=== PATIENT | male | born 1985 | race Caucasian/White ===

== ENCOUNTER 2024-09-27 10:59 | Outpatient (REF) | payer SELFPAY ==
[2024-09-27 13:09] LABS: Estimated Average Glucose 105 mg/dL; Hemoglobin A1C 148.9179 umol/L; Hemoglobin A1c % 5.3 % (<6.0); Total Hemoglobin (HGBA1C) 4302.0543 umol/L
[2024-09-27 13:19] LABS: Alanine Aminotransferase 26 U/L (0-40); Albumin Level 3.9 g/dL (3.5-5.0); Alkaline Phosphatase 73 U/L (39-117); Anion Gap 8 (12-20); Aspartate Amino Transferase 15 U/L (5-37); Bilirubin Total 1.1 mg/dL (0.0-1.0); Blood Urea Nitrogen 12 mg/dL (9-16); Calcium 8.5 mg/dL (8.4-10.2); Carbon Dioxide 28 mmol/L (22-29); Chloride 105 mmol/L (96-108); Estimated Glomerular Filt Rate > 60; Glucose Random 94 mg/dL (60-115); Potassium 3.9 mmol/L (3.3-5.1); Sodium 137 mmol/L (135-145)
[2024-09-27 14:03] LABS: Erythrocyte Sedimentation Rate 1 MM/HR (0-15)
== END 2024-09-27 11:00 | disposition home or self-care (01) ==
LOC: HO.HHCL 10:59
PROVIDERS: General Practice; Visit Provider Optometrist
DX: Z13.1 Encounter for screening for diabetes mellitus (principal); H65.93 Unspecified nonsuppurative otitis media, bilateral; H49.22 Sixth [abducent] nerve palsy, left eye
CPT/HCPCS: 36415; 80053; 83036; 85652

== ENCOUNTER 2024-12-06 08:53 | Outpatient (REF) | payer MEDICAID, SELFPAY ==
--- OUTSIDE RECORDS SUMMARY | 2024-12-06 09:17 | XMS_ITS | Data Portability ---
Author Organization ARAM villagomez [id number] Address [address] [place] [address] Assessment No assessment recorded. Plan of Treatment Reminders Order Date Submit Date Provider Last Modified By Organization Details Last Modified Time Details Appointments None record ed. Lab None record ed. Referral None record ed. Procedures None record ed. Surgeries None record ed. Imaging None record ed. Medication Orders None record ed. Patient TargetsNo targets recorded. Patient InstructionsNo instructions recorded. Reason for Referral None Reported. Medical Equipment None Reported. Vitals None Recorded Social History None recorded. Functional Status None recorded. Mental Status None recorded. Family History Nothing Reported. Medical History No medical history recorded. Past Encounters Encounter ID Performer Location Encounter Start Date Encounter Closed Date Diagnosis/Indication Diagnosis SNOMED-CT Code Diagnosis ICD10 Code Diagnosis Note [id number] [address] [place] [phone] 0 03/29/2022 08:04:23 03/29/2022 10:45:06 [id number] [address] [place] [address] [phone] 0 05/29/2021 14:44:43 05/29/2021 20:00:05 [id number] [address] [place] [phone] 0 05/29/2021 15:01:44 05/29/2021 20:00:01 [id number] Milton Polk MD [address] [place] [address] 05/18/2023 16:43:35 05/18/2023 17:53:02 Physical examination 2859282 Z04.9 Hotel Front Desk Agent lic ense medical examination [id number] Z02.4 Health Concerns Section Related Observation LastModified by Organization Detai ls LastModified Time None Recorded Concern Status LastModified by Organization Details LastModified Time None Recorded Advance Directives Directive None Recorded Payers Encounter Date Sequence Insurance Name Policy Number Policy [place] Covered Member ID [place] Member ID Guarantor Name 05/18/2023 OC-PAY AT TIME OF SERVICE 2022 Deonte Myrick SELF Deonte Myrick
--- OUTSIDE RECORDS SUMMARY | 2024-12-06 09:17 | XMS_ITS | Encounter Summary ---
Author Organization [employer] Address [address] [place] [address] [address] [place] [address] Care Team Providers Care Self Defense Instructor Name Role Phone Name, Mika SMITH Primary Care Provider Reason for Visit * Reason Comments initial visit Encounter Details Date Type Department Care Team ([facility] st Contact Info) Description 11/29/2024 10:45 AM EST Office Visit [facility] [address] [place] [address] [phone] Name, MD Mika [address] [place] [address] Vertigo (Primary Dx); History of stroke; Tiredness; Vaccine refused by patient Social History Tobacco Use Types Packs/Day Years Used Date Smoking Tobacco: Never Passive Smoke Exposure: Never Smokeless Tobacco: Never Alcohol Use Standard Drinks/Week Comments Never 0 (1 standard drink = 0.6 oz pur e alcohol) Housing Stability Answer Date Recorded What is your housing situation today? I have garcíamariah wolfe 11/22/[address] you li ve. Do you have problems with any of the following? None of the above 11/22/2024 Food Insecurity Answer Date Recorded Within the past 12 months, y ou worried that your food would run out before you got money to buy more: Never True 11/22/2024 Within the past 12 months,th e food you bought just didn't last and you didn't have enough money to get more: Never True Transportation Answer Date Recorded In the past 12 months, has l ack of transportation kept you from medical appts, meetings, work or from getting things needed for daily living? No 11/22/2024 Utilities Answer Date Recorded In the past 12 months, has t he electric, gas, oil or water company threatened to shut off services in your home? No 11/22/2024 Internet Access Answer Date Recorded Internet Access Q1 Yes 11/22/2024 Internet Access Q2 Not on file 11/22/2024 Sex and Gender Information Value Date Recorded Sex Assigned at Male 08/23/2022 10:18 AM EDT Legal Sex Male 10:18 AM EDT Gender Identity Male 08/23/2022 10:18 AM EDT Sexual Orientation Don't know 09/26/2024 9: 08 AM EST Sexual Orientation Straight 09/26/2024 9: 08 AM EST documented as of this encounter Last Filed Vital Signs Vital Sign Reading Time Taken Comments Blood Pressure 120/80 11/29/2024 10:37 AM EST Pulse 82 11/29/2024 10:37 AM EST Temperature 35.6 ??C (96 ??F) 11/29/2024 10:37 AM EST Respiratory Rate 18 11/29/2024 10:37 AM EST Oxygen Saturation 96% 11/29/2024 10:37 AM EST Inhaled Oxygen Concentration - - Weight 81.7 kg (180 lb 3.2 oz) 11/29/2024 10:37 AM EST Height 157.5 cm (5' 2 ) 11/29/2024 10:37 AM EST Body Mass Index 32.96 11/29/2024 10:37 AM EST documented in this encounter Progress Notes * Mika Aceves MD - 11/29/2024 10:45 AM EST Subjective Patient ID: Deonte Myrick is a 39 y.o. male who presents for initial visit. Patient comes for the first time to see me. He complains of occasional vertigo and is asymptomatic during his visit. The patient explains to me that he was diagnosed with a stroke at [facility] [id number]. His presentation at the time was vertigo. The patient does not have any residual deficits. Hewas never a smoker, he does not have hypertension or diabetes, he never use illicit drugs. He does not have any focal weakness or sensory deficit. The patient tells me he still gets vertigo but very mild. He does not have any hearing deficits, no tinnitus, no ear pain. 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 He is monogamous and . He refuses any vaccination. Today he complains of occasional tiredness. He does not have any snoring or daytime sleepiness. Review of Systems Constitutional: Negative for chills, fatigue and fever. HENT: Negative for sore throat. Respiratory: Negative for cough, chest tightness and shortness of breath. Cardiovascular: Negative for chest pain, palpitations and leg swelling. Gastrointestinal: Negative for abdominal pain and blood in stool. Neurological: Negative for syncope, speech difficulty, weakness, light- headedness and headaches. Visit Vitals BP 120/80 (BP Location: Right arm, Patient Position: Sitting, BP Cuff Size: Large adult) Pulse 82 Temp 96 ??F (35.6 ??C) (Temporal) Resp 18 Ht 5' 2 (1.575 m) Wt 180 lb 3.2 oz (81.7 kg) SpO2 96% BMI 32.96 kg/m?? Smoking Status Never BSA 1.89 m?? Objective Physical Exam Constitutional: Appearance: Normal appearance. HENT: Right Ear: Tympanic membrane and external ear normal. Left Ear: Tympanic membrane and external ear normal. Cardiovascular: Rate and Rhythm: Normal rate and regular rhythm. Heart sounds: No murmur heard. Pulmonary: Effort: Pulmonary effort is normal. No respiratory distress. Breath sounds: No wheezing, rhonchi or rales. Abdominal: Palpations: Abdomen is soft. Tenderness: There is no abdominal tenderness. Musculoskeletal: Right lower leg: No edema. Left lower leg: No edema. Neurological: General: No focal deficit present. Mental Status: He is alert. Motor: No weakness. Assessment/Plan Diagnoses and all orders for this visit: Vertigo Comments: I recommended as needed meclizine. We discussed sedative side effects of the med. I will start him on aspirin and statin because of remote history of stroke. History of stroke Comments: We will get the records from [facility] back in 2019. Orders: - Lipid Panel, Standard; Future Tiredness Comments: Check CBC and TSH. Orders: - CBC auto differential; Future - TSH W/Reflex to FT4; Future Vaccine refused by patient, he also refused STI testing today Other orders - aspirin 81 MG chewable tablet; Chew 1 tablet (81 mg) Once per day. - atorvastatin (Lipitor) 40 MG tablet; Take 1 tablet (40 mg) by mouth Once per day. - meclizine (Antivert) 25 MG tablet; Take 1 tablet (25 mg) by mouth if needed in the morning, at noon, and at bedtime for dizziness for up to 10 days. documented in this encounter Plan of Treatment Scheduled Orders Name Type Priority Associated Diagnoses Orde r Schedule CBC auto differential Lab Routine Tiredness Expected: 11/29/2024 (Approximate), Expires: 11/29/2025 Lipid Panel, Standard Lab Routine History of stroke Expected: 11/29/2024 (Approximate), Expires: 11/29/2025 TSH W/Reflex to FT4 Lab Routine Tiredness Expected: 11/29/2024 (Approximate), Expires: 11/29/2025 documented as of this encounter Visit Diagnoses Diagnosis Vertigo- Primary Dizziness and giddiness History of stroke Transient ischemic attack (TIA), and cerebral infarction without residual deficits Tiredness Other malaise and fatigue Vaccine refused by patient documented in this encounter Care Teams Self Defense Instructor Relationship Specialty Start Date End Date NameMika MD [address] [place] [address] PCP - General Internal Medicine 11/29/24 documented as of this encounter
--- OUTSIDE RECORDS SUMMARY | 2024-12-06 09:17 | XMS_ITS | Encounter Summary ---
Author Organization [employer] [facility] Address [address] [place] [address] 7t [place] [address] Care Team Providers Care Employment Coordinator Name Role Phone Mika Aceves MD Primary Care Provider [phone] Reason for Referral * Consultation (Routine) - Pending Review Specialty Diagnoses / Procedures Referred By Francoise bowie Referred To Contact Cardiology Diagnoses PFO (patent foramen ovale) History of stroke Mika Aceves MD [address] [place] [address] Phone: tel: fax: Referral ID Status Reason Start Date Expiration Date Visits Requested Visits Authorized [id number] Pending Review Specialty Services Required 11/30/2024 11/30/2025 1 1 * Imaging (Routine) - Pending Review Specialty Diagnoses / Procedures Referred By Francoise bowie Referred To Contact Cardiology Diagnoses PFO (patent foramen ovale) History of stroke Procedures Transthoracic Echo (TTE) Complete Mika Aceves MD [address] [place] [address] Phone: tel: fax: [facility] Referral ID Status Reason Start Date Expiration Date Visits Requested Visits Authorized [id number] Pending Review Perform Procedure 11/30/2024 11/30/2025 1 1 Encounter Details Date Type Department Care Team (Late st Contact Info) Description 11/30/2024 Telephone [facility] [address] [place] [address] Mika Aceves MD [address] [place] [id number] Social History Tobacco Use Types Packs/Day Years Used Date Smoking Tobacco: Never Passive Smoke Exposure: Never Smokeless Tobacco: Never Alcohol Use Standard Drinks/Week Comments Never 0 (1 standard drink = 0.6 oz pur e alcohol) Housing Stability Answer Date Recorded What is your housing situation today? I have garcía wolfe 11/22/[address] you [...] AM EST documented as of this encounter Miscellaneous Notes * Telephone Encounter - Keysha Garcia RN - 11/30/2024 2:18 PM EST TC placed to [facility] Medical Records department per provider message, Thank you from getting the [facility] record. Can you please get me the results of the hypercoagulability workup done back in 2019. Testing included factor V Leyden, prothrombin gene mutation, homocystine level, JAK2 mutation, antiphospholipid antibody. Spoke to staff member who states he will fax over requested information now to fax number [phone]. * Telephone Encounter - Mika Aceves MD - 11/30/2024 1:54 PM EST I called the patient. The patient has stroke from unknown origin back in 2019. He had a thalamic stroke. Workup at [facility] showed echocardiogram with PFO. I have recommended repeat echo and referralto cardiology. Continue aspirin and statin. documented in this encounter Plan of Treatment Scheduled Orders Name Type Priority Associated Diagnoses Order Schedule Transthoracic Echo (TTE) Complete Echocardiography Routine PFO (patent foramen ovale) History of stroke Expected: 11/30/2024 (Approximate), Expires: 11/30/2026 Scheduled Referrals Name Type Priority Associated Diagnoses Order Schedule Referral to Cardiology Outpatient Referral Routine PFO (patent foramen ovale) History of stroke Expected: 11/30/2024 (Approximate), Expires: 11/30/2025 documented as of this encounter Visit Diagnoses Diagnosis PFO (patent foramen ovale)- Primary Ostium secundum type atrial septal defect History of stroke Transient ischemic attack (TIA), and cerebral infarction without residual deficits documented in this encounter Care Teams Employment Coordinator Relationship Specialty Start Date End Date Name, MD Mika [address] [place] [address] PCP - General Internal Medicine 11/29/24 documented as of this encounter
--- OUTSIDE RECORDS SUMMARY | 2024-12-06 09:17 | XMS_ITS | Encounter Summary ---
Author Organization [employer] Address [address] [facility] [address] [place] [address] Care Team Providers Care Makeup Artist Name Role Phone Name, Mika SMITH Primary Care Provider [phone] Encounter Details Date Type Department Care Team (Latest Contact Info) Description 11/29/2024 Travel Social History Tobacco Use Types Packs/Day Years [...] AM EST documented as of this encounter Plan of Treatment Not on file documented as of this encounter Visit Diagnoses Not on filedocumented in this encounter Care Teams Makeup Artist Relationship Specialty Start Date End Date Name, MD Mika [address] [place] [address] PCP - General Internal Medicine 11/29/24 documented as of this encounter
--- OUTSIDE RECORDS SUMMARY | 2024-12-06 09:17 | XMS_ITS | Encounter Summary ---
Author Organization [employer] Address [address] [place] [address] Care Team Providers Care Card Lacer Jacquard Name Role Phone Name, Mika SMITH Primary Care Provider [phone] Encounter Details Date Type Department Care Team ([facility] st Contact Info) Description 11/29/2024 Telephone [facility] [address] [place], [place] [phone] Keysha Garcia, RN Social History Tobacco Use Types Packs/Day Years Used Date Smoking Tobacco: Never Passive Smoke Exposure: Never Smokeless Tobacco: Never Alcohol Use Standard Drinks/Week Comments Never 0 (1 standard drink = 0.6 oz pur e alcohol) Housing Stability Answer Date Recorded What is your housing situation today? I have garcía yaneth 11/22/[address] you li [...] Telephone Encounter - Keysha Garcia RN - 11/29/2024 11:48 AM EST RN attempted to find records in [facility] [employer] portal. No records available. [facility] any records of pt having stroke in 2019. Transferred to medical records for assistance. Medical records states they have the records. Fax number [phone] provided and asked to send with ATTN to [employer]. Information confirmed with [facility] Records st aff and they state they will fax the inpatient admission records to us. documented in this encounter Plan of Treatment Not on file documented as of this encounter Visit Diagnoses Not on filedocumented in this encounter Care Teams Card Lacer Jacquard Relationship Specialty Start Date End Date Name, MD Mika [address] [place] [address] PCP - General Internal Medicine 11/29/24 documented as of this encounter
--- OUTSIDE RECORDS SUMMARY | 2024-12-06 09:17 | XMS_ITS | Encounter Summary ---
Author Organization [employer] Address [address] [place] [address] Care Team Providers Care Automobile Inspector Name Role Phone Unavailable Primary Care Provider Unavailabl e Reason for Visit * Reason Comments Pre-visit Planning SDOH negative, Tobac co screening negative. Encounter Details Date Type Department Care Team ([facility] st Contact Info) Description 11/22/2024 Patient Outreach [facility] [address] [place] [address] Name, MD Mika [address] [place] [address] Pre-visit Planning (SDOH negative, Tobacco screening negative. ) Social History Tobacco Use Types Packs/Day Years [...] AM EST documented as of this encounter Progress Notes * Ewa Smith - 11/22/2024 12:11 PM EST JUDI Chang placed successful outbound call to patient for pre-visit planning. Patient name and confirmed. Patient confirms appt date and time, and has transportation arrangements. Biggest concern for appointment at this time is no concerns. Appropriate screenings completed in anticipation ofappointment. documented in this encounter Plan of Treatment Not on file documented as of this encounter Visit Diagnoses Not on filedocumented in this encounter
--- OUTSIDE RECORDS SUMMARY | 2024-12-06 09:17 | XMS_ITS | Clinical Summary ---
Author Organization [employer] Address [address] [facility] 7t [place] [address] Care Team Providers Care Food And Beverage Assistant Name Role Phone Name, Mika SMITH Primary Care Provider [phone] Allergies No known active allergies Medications aspirin 81 MG chewable tablet Chew 1 tablet (81 mg) Once per day. 30 tablet 11 5 11/29/19 26 Active atorvastatin (Lipitor) 40 MG tablet Take 1 tablet (40 mg) by mouth Once per day. 30 tablet 11 5 11/29/19 26 Active meclizine (Antivert) 25 MG tablet Take 1 tablet (25 mg) by mouth if needed in the morning, at noon, and at bedtime for dizziness for up to 10 days. 30 tablet 5 12/09/19 25 Active Active Problems Problem Noted Date Diagnosed Date PFO (patent foramen ovale) 11/30/2024 History of stroke 11/30/2024 Fluid level behind tympanic membrane of both ear s 09/26/2024 Assessment & Plan (09/26/2024 10:50 AM EST): Continue prednisone and antihistamine for full seven day treatment Additional labs for full metabolic panel and sed rate Diplopia 09/26/2024 Assessment & Plan (09/26/2024 10:49 AM EST): Referred urgently to optometry for DE, normal pupillary function and EOM, reviewed CT results from [place], no abnormalities seen apart from sinus polyp Called 09/26/24 at 10am to schedule appointment for pt Encounters Date Type Department Care Team Description 11/30/2024 Telephone [facility] [address] [place] [address] Mika Aceves MD 11/29/2024 10:45 AM EST Office Visit [facility] [address] [place] [address] Mika Aceves MD Vertigo (Primary Dx); History of stroke; Tiredness; Vaccine refused by patient 11/29/2024 Telephone [facility] [address] [place] [address] Keysha Garcia, REJI 11/29/2024 Travel 11/22/2024 Patient Outreach [facility] [address] [place], [place] [phone] Mika Aceves MD Pre-visit Planning (SDOH negative, Tobacco screening negative. ) 10/01/2024 Telephone [facility] [address] [place] [address] Geeta Angel, REJI Results 09/26/2024 3:30 PM EST Office Visit [facility] [address] [place] [address] Candi Singer, OD Left abducens nerve palsy (Primary Dx); Snail-track retinal degeneration of both eyes 09/26/2024 Travel 09/25/2024 5:40 PM EST Office Visit [facility] [address] [place] [address] Amy Turcios MD Fluid level behind tympanic membrane of both ears (Primary Dx); Diplopia from Last 3 Months Social History Tobacco Use Types Packs/Day Years Used Date Smoking Tobacco: Never Passive Smoke Exposure: Never Smokeless Tobacco: Never Tobacco Cessation:Counseling Given: Not Answered Alcohol Use Standard Drinks/Week Comments Never 0 [...] Orientation Straight 09/26/2024 9: 08 AM EST Last Filed Vital Signs Vital Sign Reading [...] Mass Index 32.96 11/29/2024 10:37 AM EST Plan of Treatment Health Maintenance Due Date Last Done Comments Depression Screening 1983 HIV Screening 1983 Lipid Panel 1983 Family Planning (PISQ) 1998 Hepatitis C Screening 2001 DTaP/Tdap/Td Vaccines (1 - Tdap) 2002 Hepatitis B Vaccines (1 of 3 - 19+ 3-dose series) 2002 COVID-19 Vaccine (2023-2 5 season) 2024 Influenza Vaccine (#1) 2024 SDOH Screening 11/22/2025 11/22/2024 Alcohol/Substance Use Screening 11/29/2025 Tobacco Screening 11/29/2025 11/29/2024 Zoster Vaccines (1 of 2) 2033 RSV Patients and Pa tients Aged 60 years or older (1 - 1-dose 75+ series) 2058 HIB Vaccines Aged Out No longer eligi ble based on patient's age to complete this topic HPV Vaccines Aged Out No longer eligi ble based on patient's age to complete this topic Hepatitis A Vaccines Aged Out No long er eligible based on patient's age to complete this topic IPV Vaccines Aged Out No longer eligi ble based on patient's age to complete this topic Meningococcal Vaccine Aged Out No medina yair eligible based on patient's age to complete this topic Pneumococcal Vaccine: Pediat rics (0 to 5 Years) and At-Risk Patients (6 to 49) Years) Aged Out No longer elig ible based on patient's age to complete this topic RSV under 20 months Aged Out No longe r eligible based on patient's age to complete this topic Rotavirus Vaccines Aged Out No longer eligible based on patient's age to complete this topic Procedures Procedure Name Priority Date/Time Associated Diagnosis Comments COMPREHENSIVE METABOLIC PANEL Routine 09/27/2024 11:05 AM EST Fluid level behind tympanic membrane of both ears SED RATE BY MODIFIED WESTERGREN Routine 09/27/2024 11:05 AM EST Fluid level behind tympanic membrane of both ears from Last 3 Months Results * Sed Rate by Modified Westergren (09/27/2024 11:05 AM EST) Erythrocyte Sedimentation Rate 1 0 - 15 MM/HR [facility] Comment:Patients with polycy themia and many hemoglobin abnormalitiesmay have depressed sed rates whereas patients with anemiamay have elevated sed rates. Blood Venous blood specimen / Unknown 09/27/2024 11:05 AM EST 09/27/2024 12:46 PM EST us Amy Turcios MD LAB BLOOD ORDERABLES Final Res ult [facility] [address] [place] [address] [phone] * (ABNORMAL) Comprehensive Metabolic Panel (09/27/2024 11:05 AM EST) Sodium 137 135 - 145 mmol/L [facility] Potassium 3.9 3.3 - 5.1 mmol/L [facility] Chloride 105 96 - 108 mmol/L [facility] Carbon Dioxide 28 22 - 29 mmol/L [facility] Anion Gap 8(L) 12 - 20 [facility] Urea Nitrogen (BUN) 12 9 - 16 mg/dL [facility] Creatinine, Serum 0.92 0.5 - 1.4 mg/dL [facility] Estimated Glomerular Filt Rate >60 [facility] Comment:Chronic Kidney Disea se: Estimated GFR < 60 mL/min/[id number] Kidney Disease: Estimated GFR < 15 mL/min/1.73m2 Glucose 94 60 - 115 mg/dL [facility] Calcium 8.5 8.4 - 10.2 mg/dL [facility] Bilirubin, Total 1.1(H) 0.0 - 1.0 mg/dL [facility] Aspartate Amino Transferase 15 5 - 37 U/L [facility] Alanine Aminotransferase 26 0 - 40 U/L [facility] Total Protein 7.0 6.5 - 8.0 g/dL [facility] Albumin Level 3.9 3.5 - 5.0 g/dL [facility] Alkaline Phosphatase 73 39 - 117 U/L [facility] Blood Venous blood specimen / Unknown 09/27/2024 11:05 AM EST 09/27/2024 12:46 PM EST us Amy Turcios MD LAB BLOOD ORDERABLES Final Res ult Performing Organization Address [facility]/ZIP Co de Phone Number [facility] [address] [place] [address] [phone] from Last 3 Months Insurance [facility] C[facility] C3 Care Teams Food And Beverage Assistant Relationship Specialty Start Date End Date Name, MD Mika [address] [place] [id number] PCP - General Internal Medicine 11/29/24
[2024-12-06 11:30] LABS: MANUAL DIFF FLAG NO
[2024-12-06 11:36] LABS: Basophils Percent Auto 0.8 % (0-2); Eosinophils Absolute Auto 0.2 X10*3/uL (0.0-0.4); Eosinophils Percent Auto 4.4 % (0-4); Hemoglobin 16.6 g/dl (14.0-18.0); Imm Gran Abs Auto 0.01 X10*3/uL (0.00-0.03); Imm Gran Pct Auto 0.2 % (0.0-0.4); Lymphocytes Absolute Auto 1.7 X10*3/uL (1.2-4.9); Lymphocytes Percent Auto 34.4 % (20-40); Mean Corpuscular HGB Conc 33.9 g/dl (31.0-36.0); Mean Corpuscular Volume 88.6 fL (80.0-98.0); Mean Platelet Volume 10.7 fL (9.4-12.4); Monocytes Absolute Auto 0.4 X10*3/uL (0.1-1.2); Monocytes Percent Auto 7.6 % (2-11); Neutrophils Absolute Auto 2.7 x10*3/uL (2.0-8.3); Neutrophils Percent Auto 52.6 % (45-73); Platelet Count 358 X10*3/uL (160-400); Red Blood Count 5.53 X10*6/uL (4.60-5.80); Red Cell Distribution Width 13.2 % (11.0-16.0)
[2024-12-06 11:50] LABS: Cholesterol 165 mg/dL (<200); HDL Cholesterol 43 mg/dL (>40); LDL Cholesterol Calculated 109 mg/dL (<100); Triglycerides 66 mg/dL (<150)
[2024-12-06 12:04] LABS: TSH reflex Free T4 1.25 uIU/mL (0.32-4.0)
== END 2024-12-06 08:54 | disposition home or self-care (01) ==
LOC: HO.HHCL 08:53
PROVIDERS: Visit Provider Internal Medicine Geriatric Medicine
DX: R53.83 Other fatigue (principal); Z86.73 Personal history of transient ischemic attack (TIA), and cerebral infarction without residual deficits
CPT/HCPCS: 36415; 80061; 84443; 85025